=== PATIENT | female | born 1975 | race Caucasian/White ===

== ENCOUNTER 2020-03-29 16:23 | Outpatient (REF) | payer OTHER, SELFPAY ==
--- NOTE | 2020-03-29 16:25 | MR_ITS ---
EXAMINATION: MR BREAST WITHOUT AND WITH CONTRAST, BILATERAL CLINICAL INFORMATION: 44-year-old for high-risk screening lifetime risk 26% family history. COMPARISON: MRI of 12/19/2018, 11/22/2017 and 02/15/2017. TECHNIQUE: Imaging was performed with a dedicated breast coil. Prior to the administration of contrast, bilateral axial T1 and bilateral axial T2 weighted sequences were obtained. After the uneventful administration of?7 mL of Gadavist, dynamic contrast-enhanced VIBRANT series through the breasts in the axial plane were performed. Subtracted images were performed and reviewed. A delayed sagittal sequence through both breasts was acquired. Additionally, CAD post-processing, including maximum intensity projections, 3-D reconstructions and kinetic analysis, were performed an independent workstation and reviewed by the interpreting radiologist is a portion of this exam. FINDINGS: The patient's fibroglandular tissue demonstrates moderate background enhancement. LEFT BREAST: There is a susceptibility artifact without significant enhancement in the 3 o'clock position. There are a few scattered foci of enhancement demonstrating subthreshold and progressive-type kinetics. There are no areas of mass or non-mass suspicious of malignancy. There are T2 bright foci which may represent small cysts. There are no other findings on T2-weighted imaging or kinetic curve analysis. RIGHT BREAST: There are similar to the contralateral breast diffuse scattered foci of enhancement demonstrating subthreshold and progressive-type kinetics. No areas of mass or non-mass enhancement are suspicious of malignancy. There are T2 bright foci similar to the contralateral breast which may represent cysts. No additional findings on kinetic curve analysis. There is no suspicious internal mammary chain or axillary adenopathy. Limited views of the chest and abdomen are unremarkable. MR/MR breast BI wo/w con IMPRESSION: No MR specific evidence of malignancy. ASSESSMENT: LEFT BREAST: BI-RADS 2 benign. RIGHT BREAST: BI-RADS 2 benign. RECOMMENDATIONS: Routine mammographic imaging as per most recent study and MRI as per high-risk protocol.
== END 2020-03-29 16:24 | disposition home or self-care (01) ==
LOC: HO.MRI 16:23
PROVIDERS: PCP Internal Medicine; Visit Provider Surgery
DX: Z91.89 Other specified personal risk factors, not elsewhere classified (principal); Z80.3 Family history of malignant neoplasm of breast
CPT/HCPCS: 77049; A9585

== ENCOUNTER → 2020-04-20 14:48 | Outpatient (BNVA) | payer OTHER, SELFPAY | PROVIDERS: PCP Internal Medicine; Visit Provider Surgery ==

== ENCOUNTER 2020-11-16 15:35 | Outpatient (REF) | payer OTHER, SELFPAY ==
--- NOTE | ~2020-11-16 | MM_ITS ---
EXAMINATION: MM SCREENING DIGITAL BREAST TOMOSYNTHESIS, BILATERAL CLINICAL INFORMATION: Screening. Asymptomatic. The lifetime risk of breast cancer based on the Tyrer-Cuzick Model is 16%. COMPARISON: Mammography: 11/10/2019, 10/24/2018, 10/18/2017; MR breasts 03/29/2020 TECHNIQUE: Digital breast tomosynthesis is performed in both the craniocaudal and mediolateral oblique views along with computer-aided detection (CAD). Synthesized 2D images are generated from the tomosynthesis. Additional exaggerated right CC view is provided. FINDINGS: There are scattered areas of fibroglandular density (ACR BI-RADS breast composition Category b). There are no significant masses, abnormal calcifications, or other abnormalities. Breast tissue composition borders on extremely dense. There is a biopsy clip marker again seen upper outer left breast. The axilla and skin contours are unremarkable. MM/MM tomosynthesis screening BI IMPRESSION: No mammographic evidence of malignancy. ASSESSMENT: BI-RADS 1: Negative RECOMMENDATION: Routine annual mammography screening. This patient's information was entered into a reminder system with a target due date for their next mammogram.
== END 2020-11-16 15:36 | disposition home or self-care (01) ==
LOC: HO.MAMMO 15:35
PROVIDERS: PCP Internal Medicine; Visit Provider Surgery
DX: Z12.31 Encounter for screening mammogram for malignant neoplasm of breast (principal)
CPT/HCPCS: 77063; 77067

== ENCOUNTER 2021-09-19 16:37 | Outpatient (REF) | payer OTHER, SELFPAY ==
--- NOTE | ~2021-09-19 | MR_ITS ---
EXAMINATION: MR BREAST WITHOUT AND WITH CONTRAST, BILATERAL CLINICAL INFORMATION: 45-year-old for high-risk screening, lifetime risk greater than 20%, family history. COMPARISON: MRI 03/29/2020, 12/19/2018, 11/22/2017. Correlation to mammogram of 11/16/2020. TECHNIQUE: Imaging was performed with a dedicated breast coil. Prior to the administration of contrast, bilateral axial T1- and bilateral axial T2-weighted sequences were obtained. After the uneventful administration of?7 mL of Gadavist, dynamic contrast-enhanced VIBRANT series through the breasts in the axial plane were performed. Subtracted images were performed and reviewed. A delayed sagittal sequence through both breasts was acquired. Additionally, CAD post-processing, including maximum intensity projections, 3-D reconstructions and kinetic analysis, were performed an independent workstation and reviewed by the interpreting radiologist is a portion of this exam. FINDINGS: The patient's fibroglandular tissue demonstrates moderate background enhancement. There is diffuse motion artifact which decreases the overall sensitivity of the examination. LEFT BREAST: There is a susceptibility artifact at 3 o'clock with no significant enhancement. There are a few scattered foci of enhancement demonstrating subthreshold kinetics. There are no new areas of mass or non-mass enhancement suspicious of malignancy. There are no secondary signs of malignancy such as nipple inversion or duct enhancement. There are scattered T2 bright foci consistent with cysts. There are no additional findings on kinetic curve analysis. RIGHT BREAST: No suspicious masslike or non-masslike enhancement. No abnormal skin thickening or nipple retraction. There are a few scattered foci of enhancement demonstrating subthreshold kinetics. No abnormal architectural distortion. There are scattered oval T2 bright masses consistent with cysts. Review of kinetic images reveals no additional findings. There is no suspicious internal mammary chain or axillary adenopathy. Limited views of the chest and abdomen are unremarkable. MR/MR breast BI wo/w con IMPRESSION: Motion decreases the overall sensitivity of this study. There are no new MR findings suspicious of malignancy in either breast. ASSESSMENT: LEFT BREAST: BI-RADS 2 benign. RIGHT BREAST: BI-RADS 2 benign. RECOMMENDATIONS: Routine mammographic imaging as per most recent study and MRI as per high-risk protocol.
== END 2021-09-19 16:38 | disposition home or self-care (01) ==
LOC: HO.MRI 16:37
PROVIDERS: Visit Provider Surgery
DX: Z91.89 Other specified personal risk factors, not elsewhere classified (principal); Z80.3 Family history of malignant neoplasm of breast
CPT/HCPCS: 77049; A9585

== ENCOUNTER 2021-11-24 13:04 | Outpatient (REF) | payer OTHER, SELFPAY ==
--- NOTE | ~2021-11-24 | MM_ITS ---
EXAMINATION: MM SCREENING DIGITAL BREAST TOMOSYNTHESIS, BILATERAL CLINICAL INFORMATION: Screening. Asymptomatic. The lifetime risk of breast cancer based on the Tyrer-Cuzick Model is 15%. COMPARISON: Mammography: 11/16/2020, 11/10/2019, 10/24/2018; bilateral breast MRI 09/19/2021 TECHNIQUE: Digital breast tomosynthesis is performed in both the craniocaudal and mediolateral oblique views along with computer-aided detection (CAD). Synthesized 2D images are generated from the tomosynthesis. FINDINGS: The breasts are heterogeneously dense, which may obscure small masses (ACR BI-RADS breast composition Category c). There are no significant masses, abnormal calcifications, or other abnormalities. There is a biopsy clip marker again noted posterior upper outer left breast. The axilla and skin contours are unremarkable. There are no significant changes from prior studies. MM/MM tomosynthesis screening BI IMPRESSION: No mammographic evidence of malignancy. ASSESSMENT: BI-RADS 1: Negative RECOMMENDATION: Routine annual mammography screening. This patient's information was entered into a reminder system with a target due date for their next mammogram.
== END 2021-11-24 13:05 | disposition home or self-care (01) ==
LOC: HO.MAMMO 13:04
PROVIDERS: PCP Internal Medicine; Visit Provider Internal Medicine
DX: Z12.31 Encounter for screening mammogram for malignant neoplasm of breast (principal)
CPT/HCPCS: 77063; 77067

== ENCOUNTER → 2022-03-16 09:56 | Outpatient (BNVA) | payer OTHER, SELFPAY | PROVIDERS: PCP Internal Medicine; Visit Provider Surgery | DX: Z80.3 Family history of malignant neoplasm of breast (principal); Z91.89 Other specified personal risk factors, not elsewhere classified ==

== ENCOUNTER 2022-11-16 11:00 | Outpatient (REF) | payer OTHER, SELFPAY ==
--- NOTE | ~2022-11-16 | MR_ITS ---
EXAMINATION: MR BREAST WITHOUT AND WITH CONTRAST, BILATERAL CLINICAL INFORMATION: High-risk screening, family history of breast cancer. Calculated lifetime risk of breast cancer greater than 20%. COMPARISON: Bilateral breast MRI 12/19/2018, 03/29/2020, 09/19/2021, bilateral mammogram 11/24/2021 TECHNIQUE: Imaging was performed with a dedicated breast coil. Prior to the administration of contrast, bilateral axial T1 and bilateral axial T2 weighted sequences were obtained. After the uneventful administration of?7 mL of Gadavist, dynamic contrast-enhanced VIBRANT series through the breasts in the axial plane were performed. Subtracted images were performed and reviewed. A delayed sagittal sequence through both breasts was acquired. Additionally, CAD post-processing, including maximum intensity projections, 3-D reconstructions and kinetic analysis, were performed an independent workstation and reviewed by the interpreting radiologist is a portion of this exam. FINDINGS: The patient's extremely dense fibroglandular tissue demonstrates minimal background enhancement. LEFT BREAST: There are a few, stable appearing, scattered enhancing foci present. No suspicious masslike or non-masslike enhancement. No abnormal skin thickening or nipple retraction. No abnormal architectural distortion. Review of the T2 weighted images demonstrate numerous, scattered, small nonenhancing cysts, there are no dilated ducts. Review of kinetic images reveals no additional findings. RIGHT BREAST: There are a few, stable appearing, scattered enhancing foci present, as compared to prior of 2020, the number of scattered enhancing foci has decreased. No suspicious masslike or non-masslike enhancement. No abnormal skin thickening or nipple retraction. No abnormal architectural distortion. Review of the T2 weighted images demonstrate numerous, scattered, small nonenhancing cysts, there are no dilated ducts. Review of kinetic images reveals no additional findings. There is no suspicious internal mammary chain or axillary adenopathy. Limited views of the chest and abdomen are unremarkable. MR/MR breast BI wo/w con IMPRESSION: No MR specific evidence of malignancy. ASSESSMENT: LEFT BREAST: BI-RADS 2, benign findings. RIGHT BREAST: BI-RADS 2, benign findings. RECOMMENDATIONS: The patient is currently due for bilateral yearly screening mammogram. Repeat MRI as clinically indicated.
[2022-11-16] MEDS: gadobutroL 7.5 ML VIAL IVPUSH (12:18)
== END 2022-11-16 11:01 | disposition home or self-care (01) ==
LOC: HO.MRI 11:00
PROVIDERS: PCP Internal Medicine; Visit Provider Surgery
DX: Z12.39 Encounter for other screening for malignant neoplasm of breast (principal); Z91.89 Other specified personal risk factors, not elsewhere classified; Z80.3 Family history of malignant neoplasm of breast
CPT/HCPCS: 77049; A9585

== ENCOUNTER 2022-11-23 10:31 | Outpatient (AMB) | payer OTHER, SELFPAY ==
--- NOTE | 2022-11-23 10:41 | A.OFFVIS_ITS ---
Intake Vital Signs 11/23/22 10:49 Height 5 ft 4 in Weight 167 lb 6 oz BMI 28.7 BP 134/63 Blood Pressure Location Lt brachial Position Sitting Pulse 66 Intake Visit Reasons: Breast exam, 6 month follow up Intake Note: Patient is seen in office for 6 month follow up visit, breast exam. 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 Cortez and Dr. Escobedo with a strong family history of breast cancer including a maternal grandmother diagnosed at the age of 50 and a sister with ductal carcinoma in situ diagnosed at the age of 37. She was determined to have a lifetime risk of breast cancer at 31% therefore was placed on a high risk protocol, which included yearly mammogram, alternating every 6 months with yearly MRIs. She also underwent twice yearly clinical breast examination. An MRI was performed on 01/30/2017 revealed a suspicious enhancing mass in the left breast 3 o'clock position. Subsequent MR guided biopsy on 02/15/2018 revealed benign breast tissue with focal florid ductal hyperplasia, stromal fibrosis, columnar cell change, and apocrine metaplasia and microcysts. A six-month follow-up MRI was recommended, performed on 12/19/2018 which revealed a benign enhancing focus of the 6 o'clock position of the right breast. 1 year follow-up was recommended. Her latest mammogram dated 11/24/2021 revealed no mammographic evidence of malignancy (BI-RADS 1). Bilateral breast MRI of 11/16/2022 revealed no MR specific evidence of malignancy (BI-RADS 2 bilaterally). She continues to note lumpiness in the left breast which is tender to palpation. 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 [facility] Surgical History History of left breast biopsy Family History Father History of myocardial infarction Maternal Grandmother History of breast cancer Social History Alcohol intake: current Alcohol intake frequency: holidays/special occasions only Female Reproductive History Menstrual Date of Mammogram: 11/24/21 Review of Systems Const All systems reviewed & are unremarkable except as noted in HPI and below Denies nipple discharge Skin/Breast Denies breast skin changes, Reports breast pain, Denies breast mass, Denies change in breast shape, Denies new lesions and Denies nipple discharge Physical Exam Vital Signs: Last Vital Signs Pulse 66 11/23/22 10:49 BP 134/63 11/23/22 10:49 BMI result Body Mass Index 28.7 Const General: no acute distress and well developed Nutritional Appearance: well nourished Orientation/consciousness: patient oriented x3 Limitations: no limitations HEENT Head: Yes normocephalic and Yes atraumatic Ears: hearing grossly normal bilaterally Neck Neck: Yes trachea midline, Yes supple and Yes no JVD Chest Other: Right breast: No skin change, no nipple discharge, no nipple retraction, and no enlarged lymph node. Left breast: No palpable mass, skin change, nipple discharge, nipple retraction, or enlarged lymph node. Mild tenderness throughout the breast with no discrete mass; mild fibrocystic change. Resp Effort & Inspection: normal respiratory effort, no audible wheezes, no cough and no respiratory distress Skin General skin exam: no rashes or lesions noted Neuro General: patient oriented x3 Extrem General: Yes no clubbing, cyanosis or edema Assessment & Plan Assessment & Plan (1) Family history of breast cancer in first degree relative: Code(s): Z80.3 - Family history of malignant neoplasm of breast (2) At high risk for breast cancer: Code(s): Z91.89 - Other specified personal risk factors, not elsewhere classified Plan 47-year-old female patient determined to be high risk for breast cancer due to family history returning today for follow-up breast examination as part of the high risk screening protocol. Examination today reveals no suspicious findings in either breast. Her most recent mammogram and MRI revealed no suspicious findings. She will be due for a follow-up mammogram in 01/18/2023. She will follow up in 6 months for clinical breast examination. She is welcome to call sooner for any new concerns. Coding Level of Care Code Est Pt Level 3 (32200) Diagnoses Family history of breast cancer in first degree relative Z80.3 At high risk for breast cancer Z91.89
[2022-11-23 10:49] VITALS: BP 134/63; PULSE 66; BMI 28.7
== END 2022-11-23 10:58 | disposition home or self-care (01) ==
PROVIDERS: PCP Internal Medicine; Visit Provider Surgery
DX: Z80.3 Family history of malignant neoplasm of breast (principal); Z91.89 Other specified personal risk factors, not elsewhere classified
CPT/HCPCS: 99213

== ENCOUNTER → 2022-11-23 10:31 | Outpatient (BNVA) | payer OTHER, SELFPAY | PROVIDERS: PCP Internal Medicine; Visit Provider Surgery ==

== ENCOUNTER 2023-01-18 10:59 | Outpatient (REF) | payer OTHER, SELFPAY ==
--- NOTE | ~2023-01-18 | MM_ITS ---
EXAMINATION: MM SCREENING DIGITAL BREAST TOMOSYNTHESIS, BILATERAL CLINICAL INFORMATION: Screening. Asymptomatic. COMPARISON: Mammography: This study is compared with prior exams dating back to 2019. TECHNIQUE: Digital breast tomosynthesis is performed in both the craniocaudal and mediolateral oblique views along with computer-aided detection (CAD). Synthesized 2D images are generated from the tomosynthesis. FINDINGS: The breasts are extremely dense, which lowers the sensitivity of mammography (ACR BI-RADS breast composition Category d). There are no significant masses, abnormal calcifications, or other abnormalities. There is tissue marker present in the upper outer quadrant of the left breast from prior benign percutaneous biopsy. MM/MM tomosynthesis screening BI IMPRESSION: No mammographic evidence of malignancy. ASSESSMENT: BI-RADS BI-RADS 2 - Benign Findings RECOMMENDATION: Routine annual mammography screening. 1 year F/U This examination should not preclude the clinical evaluation of a suspicious palpable abnormality. This patient's information was entered into a reminder system with a target due date for their next mammogram.
== END 2023-01-18 11:00 | disposition home or self-care (01) ==
LOC: HO.MAMMO 10:59
PROVIDERS: PCP Internal Medicine; Visit Provider Surgery
DX: Z12.31 Encounter for screening mammogram for malignant neoplasm of breast (principal)
CPT/HCPCS: 77063; 77067

== ENCOUNTER → 2023-01-18 11:30 | Outpatient (BNV) | payer OTHER, SELFPAY | PROVIDERS: PCP Internal Medicine; Visit Provider Radiology Diagnostic Radiology | DX: Z12.31 Encounter for screening mammogram for malignant neoplasm of breast (principal) | CPT/HCPCS: 77063; 77067 ==

== ENCOUNTER 2023-08-16 10:58 | Outpatient (AMB) | payer OTHER, SELFPAY ==
--- NOTE | 2023-08-16 11:01 | A.OFFVIS_ITS ---
Vital Signs 08/16/23 11:06 Height 5 ft 4 in Weight 171 lb BMI 29.3 BP 131/78 Blood Pressure Location Lt brachial Position Sitting Pulse 84 Intake Visit Reasons: six month breast exam Intake Note: Patient is seen in office for 6 month follow up visit, breast exam. 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 Cortez and Dr. Escobedo with a strong family history of breast cancer including a maternal grandmother diagnosed at the age of 50 and a sister with ductal carcinoma in situ diagnosed at the age of 37. She was determined to have a lifetime risk of breast cancer at 31% therefore was placed on a high risk protocol, which included yearly mammogram, alternating every 6 months with yearly MRIs. She also underwent twice yearly clinical breast examination. An M RI was performed on 01/30/2017 revealed a suspicious enhancing mass in the left breast 3 o'clock position. Subsequent MR guided biopsy on 02/15/2018 revealed benign breast tissue with focal florid ductal hyperplasia, stromal fibrosis, columnar cell change, and apocrine metaplasia and microcysts. A six-month follow-up MRI was recommended, performed on 12/19/2018 which revealed a benign enhancing focus of the 6 o'clock position of the right breast. Her latest mammogram dated 01/18/2023 revealed no mammographic evidence of malignancy (BI- RADS 2). Breast MRI performed on 11/16/2022 revealed no MRI specific evidence of malignancy in either breast (BI-RADS 2). She continues to note lumpiness in the left breast which is tender to palpation. 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 [facility] Surgical History History of left breast biopsy Family History Father History of myocardial infarction Maternal Grandmother History of breast cancer Social History Alcohol intake: current Alcohol intake frequency: holidays/special occasions only Review of Systems Const All systems reviewed & are unremarkable except as noted in HPI and below Denies nipple discharge Skin/Breast Denies breast skin changes, Reports breast pain, Denies breast mass, Denies change in breast shape, Denies new lesions and Denies nipple discharge Physical Exam Const General: no acute distress and well developed Nutritional Appearance: well nourished Orientation/consciousness: patient oriented x3 Limitations: no limitations HEENT Head: Yes normocephalic and Yes atraumatic Ears: hearing grossly normal bilaterally Neck Neck: Yes trachea midline, Yes supple and Yes no JVD Chest Other: Right breast: No skin change, no nipple discharge, no nipple retraction, and no enlarged lymph node. Left breast: No palpable mass, skin change, nipple discharge, nipple retraction, or enlarged lymph node. Mild tenderness throughout the breast with no discrete mass; mild fibrocystic change. Resp Effort & Inspection: normal respiratory effort, no audible wheezes, no cough and no respiratory distress Skin General skin exam: no rashes or lesions noted Neuro General: patient oriented x3 Extrem General: Yes no clubbing, cyanosis or edema Assessment & Plan Assessment & Plan (1) Family history of breast cancer in first degree relative: Code(s): Z80.3 - Family history of malignant neoplasm of breast Category: Medical (2) At high risk for breast cancer: Code(s): Z91.89 - Other specified personal risk factors, not elsewhere classified Category: Medical Plan 47-year-old female patient determined to be high risk for breast cancer due to family history returning today for follow-up breast examination as part of the high risk screening protocol. Examination today reveals no suspicious findings in either breast. Her most recent mammogram and MRI revealed no suspicious findings. She will be due for a follow-up mammogram in 01/22/2024 and breast MRI in 11/22/2023. She will follow up in 6 months for clinical breast examination. She is welcome to call sooner for any new concerns. Coding Level of Care Code Est Pt Level 3 (27272) Diagnoses Family history of breast cancer in first degree relative Z80.3 At high risk for breast cancer Z91.89
[2023-08-16 11:06] VITALS: BP 131/78; PULSE 84; BMI 29.3
== END 2023-08-16 11:16 | disposition home or self-care (01) ==
PROVIDERS: PCP Internal Medicine; Visit Provider Surgery
DX: Z80.3 Family history of malignant neoplasm of breast (principal); Z91.89 Other specified personal risk factors, not elsewhere classified
CPT/HCPCS: 99213

== ENCOUNTER → 2023-08-16 10:58 | Outpatient (BNVA) | payer OTHER, SELFPAY | PROVIDERS: PCP Internal Medicine; Visit Provider Surgery ==

== ENCOUNTER 2023-12-27 10:53 | Outpatient (REF) | payer OTHER, SELFPAY ==
--- NOTE | ~2023-12-27 | MR_ITS ---
EXAMINATION: MR BREAST WITHOUT AND WITH CONTRAST, BILATERAL CLINICAL INFORMATION: High risk surveillance strong family history of breast cancer. COMPARISON: Mammography January 18, 2023, breast MRI September 19, 2021, March 29, 2020. TECHNIQUE: MR imaging of the breast was performed using T1, T2 and fat saturation techniques. Dynamic multiphase imaging was also performed after administration of intravenous gadolinium contrast agent. Computer generated 3-D reconstruction was utilized by the radiologist in the interpretation of this examination. FINDINGS: There is extremely dense fibroglandular breast tissue with moderate background enhancement with scattered enhancing foci not significantly changed from prior breast MRIs 201904/23/2020. LEFT BREAST: No suspicious enhancing mass or non-mass enhancement. No axillary or internal mammary lymphadenopathy. RIGHT BREAST: No suspicious enhancing mass or non-mass enhancement. No axillary or internal mammary lymphadenopathy. Limited views of the chest and abdomen are unremarkable. MR/MR breast BI wo/w con IMPRESSION: No MR specific evidence of malignancy. ASSESSMENT: LEFT BREAST: BI-RADS 1-Negative RIGHT BREAST: BI-RADS 1-Negative RECOMMENDATIONS: Recommend yearly MRI screening surveillance. Electronically signed by: Rhea Mills DO 01/09/2024 11:11 AM EST
[2023-12-27] MEDS: gadobutroL 7.5 ML VIAL IVPUSH (12:11)
== END 2023-12-27 10:54 | disposition home or self-care (01) ==
LOC: HO.MRI 10:53
PROVIDERS: PCP Internal Medicine; Visit Provider Surgery
DX: Z91.89 Other specified personal risk factors, not elsewhere classified (principal); Z80.3 Family history of malignant neoplasm of breast
CPT/HCPCS: 77049; A9585

== ENCOUNTER → 2023-12-27 11:10 | Outpatient (BNV) | payer OTHER, SELFPAY | PROVIDERS: PCP Internal Medicine; Visit Provider Internal Medicine | DX: Z80.3 Family history of malignant neoplasm of breast (principal); Z91.89 Other specified personal risk factors, not elsewhere classified | CPT/HCPCS: 77049 ==

== ENCOUNTER 2024-02-14 10:39 | Outpatient (AMB) | payer OTHER, SELFPAY ==
--- NOTE | 2024-02-14 10:41 | MHC.OFFVIS ---
Vital Signs 02/14/24 10:46 Height 5 ft 4 in Weight 171 lb BMI 29.3 BP 142/83 H Blood Pressure Location Lt brachial Position Sitting Pulse 88 Intake Visit Reasons: six month breast exam Intake Note: Patient is seen in office for 6 months follow up visit, breast exam. 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 Cortez and Dr. Escobedo with a strong family history of breast cancer including a maternal grandmother diagnosed at the age of 50 and a sister with ductal carcinoma in situ diagnosed at the age of 37. She was determined to have a lifetime risk of breast cancer at 31% therefore was placed on a high risk protocol, which included yearly mammogram, alternating every 6 months with yearly MRIs. She also underwent twice yearly clinical breast examination. An MRI was performed on 01/30/2017 revealed a suspicious enhancing mass in the left breast 3 o'clock position. Subsequent MR guided biopsy on 02/15/2018 revealed benign breast tissue with focal florid ductal hyperplasia, stromal fibrosis, columnar cell change, and apocrine metaplasia and microcysts. A six-month follow-up MRI was recommended, performed on 12/19/2018 which revealed a benign enhancing focus of the 6 o'clock position of the right breast. Her last mammogram dated 01/18/2023 revealed no mammographic evidence of malignancy (BI-RADS 2). She was scheduled for mammogram later today at the [facility]. Breast MRI performed on 12/27/2023 revealed no MRI specific evidence of malignancy in either breast (BI-RADS 1). She continues to note lumpiness in the left breast which is tender to palpation. She reports caring for many animals including goats and horses. [facility] Surgical History History of left breast biopsy Family History Father History of myocardial infarction Maternal Grandmother History of breast cancer Social History Alcohol intake: current Alcohol intake frequency: holidays/special occasions only Review of Systems Const All systems reviewed & are unremarkable except as noted in HPI and below Physical Exam Vital Signs: Last Vital Signs Pulse 88 02/14/24 10:46 BP 142/83 H 02/14/24 10:46 BMI result Body Mass Index 29.3 Const General: no acute distress and well developed Nutritional Appearance: well nourished Orientation/consciousness: patient oriented x3 Limitations: no limitations HEENT Head: Yes normocephalic and Yes atraumatic Ears: hearing grossly normal bilaterally Neck Neck: Yes trachea midline, Yes supple and Yes no JVD Chest Other: Right breast: No skin change, no nipple discharge, no nipple retraction, and no enlarged lymph node. Left breast: No palpable mass, skin change, nipple discharge, nipple retraction, or enlarged lymph node. Mild tenderness throughout the breast with no discrete mass; mild fibrocystic change. Resp Effort & Inspection: normal respiratory effort, no audible wheezes, no cough and no respiratory distress Skin General skin exam: no rashes or lesions noted Neuro General: patient oriented x3 Extrem General: Yes no clubbing, cyanosis or edema Assessment & Plan Assessment & Plan (1) Family history of breast cancer in first degree relative: Code(s): Z80.3 - Family history of malignant neoplasm of breast Category: Medical (2) At high risk for breast cancer: Code(s): Z91.89 - Other specified personal risk factors, not elsewhere classified Category: Medical Plan 48-year-old female patient determined to be high risk for breast cancer due to family history returning today for follow-up breast examination as part of the high risk screening protocol. Examination today reveals no suspicious findings in either breast. Her most recent mammogram and MRI revealed no suspicious findings. She is scheduled for a follow-up mammogram later today and breast MRI in December 2024. She will follow up in 6 months for clinical breast examination. She is welcome to call sooner for any new concerns. Coding Level of Care Code Est Pt Level 3 (13416) Diagnoses Family history of breast cancer in first degree relative Z80.3 At high risk for breast cancer Z91.89
[2024-02-14 10:46] VITALS: BP 142/83; PULSE 88; BMI 29.3
== END 2024-02-14 10:57 | disposition home or self-care (01) ==
PROVIDERS: PCP Internal Medicine; Visit Provider Surgery
DX: Z80.3 Family history of malignant neoplasm of breast (principal); Z91.89 Other specified personal risk factors, not elsewhere classified
CPT/HCPCS: 99213

== ENCOUNTER 2024-02-14 11:01 | Outpatient (REF) | payer OTHER, SELFPAY | END 2024-02-14 11:02 | disposition home or self-care (01) | LOC: HO.MAMMO 11:01 | PROVIDERS: PCP Internal Medicine; Visit Provider Surgery | DX: Z12.31 Encounter for screening mammogram for malignant neoplasm of breast (principal) | CPT/HCPCS: 77063; 77067 ==

== ENCOUNTER → 2024-02-14 13:00 | Outpatient (BNV) | payer OTHER, SELFPAY | PROVIDERS: PCP Internal Medicine; Visit Provider Internal Medicine | DX: Z12.31 Encounter for screening mammogram for malignant neoplasm of breast (principal) | CPT/HCPCS: 77063; 77067 ==

== ENCOUNTER 2024-08-14 11:00 | Outpatient (AMB) | payer OTHER, SELFPAY ==
--- NOTE | 2024-08-14 11:03 | A.OFFVIS_ITS ---
Vital Signs 08/14/24 11:10 Height 5 ft 4 in Weight 172 lb BMI 29.5 BP 133/80 Blood Pressure Location Lt brachial Position Sitting Pulse 76 Intake Visit Reasons: six month breast exam Intake Note: Patient is seen in office for 6 months follow up visit, breast exam. 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 Cortez and Dr. Escobedo with a strong family history of breast cancer including a maternal grandmother diagnosed at the age of 50 and a sister with ductal carcinoma in situ diagnosed at the age of 37. She was determined to have a lifetime risk of breast cancer at 31% therefore was placed on a high risk protocol, which included yearly mammogram, alternating every 6 months with yearly MRIs. She also underwent twice yearly clinical breast examination. An MRI was performed on 01/30/2017 revealed a suspicious enhancing mass in the left breast 3 o'clock position. Subsequent MR guided biopsy on 02/15/2018 revealed benign breast tissue with focal florid ductal hyperplasia, stromal fibrosis, columnar cell change, and apocrine metaplasia and microcysts. Her most recent breast MRI performed on 12/27/2023 revealed no MR evidence of malignancy (BI- RADS 1 bilaterally). Mammogram performed on 02/14/2024 also revealed no mammographic evidence of malignancy (BI-RADS 2). [facility] Surgical History History of left breast biopsy Family History Father History of myocardial infarction Maternal Grandmother History of breast cancer Social History Alcohol intake: current Alcohol intake frequency: holidays/special occasions only Review of Systems Const All systems reviewed & are unremarkable except as noted in HPI and below Physical Exam Vital Signs: Last Vital Signs Pulse 76 08/14/24 11:10 BP 133/80 08/14/24 11:10 BMI result Body Mass Index 29.5 Const General: no acute distress and well developed Nutritional Appearance: well nourished Orientation/consciousness: patient oriented x3 Limitations: no limitations HEENT Head: Yes normocephalic and Yes atraumatic Ears: hearing grossly normal bilaterally Neck Neck: Yes trachea midline, Yes supple and Yes no JVD Chest Other: Right breast: No skin change, no nipple discharge, no nipple retraction, and no enlarged lymph node. Left breast: No palpable mass, skin change, nipple discharge, nipple retraction, or enlarged lymph node. Resp Effort & Inspection: normal respiratory effort, no audible wheezes, no cough and no respiratory distress Skin General skin exam: no rashes or lesions noted Neuro General: patient oriented x3 Extrem General: Yes no clubbing, cyanosis or edema Assessment & Plan Assessment & Plan (1) Family history of breast cancer in first degree relative: Code(s): Z80.3 - Family history of malignant neoplasm of breast Category: Medical (2) At high risk for breast cancer: Code(s): Z91.89 - Other specified personal risk factors, not elsewhere classified Category: Medical Plan 48-year-old female patient determined to be high risk for breast cancer due to family history returning today for follow-up breast examination as part of the high risk screening protocol. Examination today reveals no suspicious findings in either breast. Her most recent mammogram and MRI revealed no suspicious findings. She will be scheduled for a breast MRI in December 2024 as well as mammogram on 03/05/2025. Orders: Orders MR breast BI wo/w con 12/28/24 Z80.3 - Family history of malignant neoplasm of breast, Z91.89 - Other specified personal risk factors, not elsewhere classified Coding Level of Care Code Est Pt Level 3 (23803) Complex EM visit Add On G2211 Diagnoses Family history of breast cancer in first degree relative Z80.3 At high risk for breast cancer Z91.89
[2024-08-14 11:10] VITALS: BP 133/80; PULSE 76; BMI 29.5
--- OUTSIDE RECORDS SUMMARY | 2024-08-14 12:05 | XMS_ITS | Clinical Summary ---
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 Name Role Phone Unavailable Primary Care Provider Unavailabl e Social History Tobacco Use Types Packs/Day Years Used Date Smoking Tobacco: Never Assessed Comments Unknown Sex and Gender Information Value Date Recorded Sex Assigned at Not on file Legal Sex Female 8:38 PM EDT Gender Identity Not on file Sexual Orientation Not on file Plan of Treatment Health Maintenance Due Date Last Done Comments CT Colonography 1977 Colonoscopy 1977 Colorectal Cancer Screening 1977 Depression Screening 1977 FIT DNA/Cologuard 1977 FIT 1977 FOBT 1977 HIV Screening 1977 SDOH Screening 1977 Sigmoidoscopy 1977 Disability Screening 1977 Alcohol/Substance Use Screening 1989 Tobacco Screening 1989 Family Planning (PISQ) 1992 Hepatitis C Screening 10/31/1995 Hepatitis B Vaccines (1 of 3 - 19+ 3-dose series) 1996 Pap Smear 1998 Cervical Cancer Screening 10/31/2007 HPV/Cotest 10/31/2007 Mammogram 2017 DTaP/Tdap/Td Vaccines (2 - T d or Tdap) 06/12/2021 06/13/2011 COVID-19 Vaccine ( - 2023-2 5 season) 2023 Influenza Vaccine (Season Ended) 2024 Zoster Vaccines (1 of 2) 10/31/2027 RSV Patients and Pa tients Aged 60 years or older (1 - 1-dose 75+ series) 2052 HIB Vaccines Aged Out No longer eligi ble based on patient's age to complete this topic HPV Vaccines Aged Out No longer eligi ble based on patient's age to complete this topic Hepatitis A Vaccines Aged Out No long er eligible based on patient's age to complete this topic IPV Vaccines Aged Out No longer eligi ble based on patient's age to complete this topic Meningococcal B Vaccine Aged Out No l onger eligible based on patient's age to complete this topic Meningococcal Vaccine Aged Out No jimmie yared eligible based on patient's age to complete this topic Pneumococcal Vaccine: Pediat rics (0 to 5 Years) and At-Risk Patients (6 to 49) Years) Aged Out No longer elig ible based on patient's age to complete this topic RSV under 20 months Aged Out No longe r eligible based on patient's age to complete this topic Rotavirus Vaccines Aged Out No longer eligible based on patient's age to complete this topic [id number]
== END 2024-08-14 11:20 | disposition home or self-care (01) ==
LOC: HO.HGS 11:01
PROVIDERS: PCP Internal Medicine; Visit Provider Surgery
DX: Z80.3 Family history of malignant neoplasm of breast (principal); Z91.89 Other specified personal risk factors, not elsewhere classified
CPT/HCPCS: 99213

== ENCOUNTER → 2024-08-14 11:00 | Outpatient (BNVA) | payer OTHER, SELFPAY | PROVIDERS: PCP Internal Medicine; Visit Provider Surgery ==

== ENCOUNTER → 2024-12-07 08:21 | Outpatient (BNV) | payer OTHER, SELFPAY | PROVIDERS: PCP Internal Medicine; Visit Provider Internal Medicine | DX: Z91.89 Other specified personal risk factors, not elsewhere classified (principal); Z80.3 Family history of malignant neoplasm of breast | CPT/HCPCS: 77049 ==

== ENCOUNTER 2024-12-07 08:34 | Outpatient (REF) | payer OTHER, SELFPAY ==
--- NOTE | ~2024-12-07 | MR_ITS ---
EXAMINATION: MR BREAST WITHOUT AND WITH CONTRAST, BILATERAL CLINICAL INFORMATION: High risk screening surveillance. Strong family history of breast cancer including sister and grandmother. COMPARISON: Comparison is made with relevant prior imaging on PACS. Including breast MRI November 16, 2022 December 27, 2023. TECHNIQUE: MR imaging of the breast was performed using T1, T2 and fat saturated techniques. Dynamic multiphase imaging was also performed after the administration of intravenous gadolinium contrast agent. Computer generated 3D reconstruction and enhancement kinetic analysis was ulitized by the radiologist in the interpretation of this examination. FINDINGS: Breast composition: Extreme fibroglandular breast tissue Background parenchymal enhancement: Marked with bilateral scattered enhancing foci LEFT BREAST: No suspicious enhancing masses or areas of non mass enhancement. No axillary or internal mammary adenopathy. RIGHT BREAST: No suspicious enhancing masses or areas of non mass enhancement. No axillary or internal mammary adenopathy. Limited views of the chest and abdomen are unremarkable. MR/MR breast BI wo/w con IMPRESSION: No MR specific evidence of malignancy. ASSESSMENT: LEFT BREAST: BI-RADS 1-Negative RIGHT BREAST: BI-RADS 1-Negative RECOMMENDATIONS: Yearly screening mammography Yearly Breast MRI screening surveillance. Electronically signed by: Rhea Mills DO 12/07/2024 05:42 PM EDT
--- OUTSIDE RECORDS SUMMARY | 2024-12-07 09:12 | XMS_ITS | Clinical Summary ---
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
--- OUTSIDE RECORDS SUMMARY | 2024-12-07 09:12 | XMS_ITS | Clinical Summary ---
Author Organization [facility] Address [address] [place] [address] Care Team Providers Care Supervisor Wet End Name Role Phone Ledy Romeo MD Primary Care Provider [phone] Allergies Active Allergy Reactions Criticality Noted Date Comments Hydrocodone-Acetamino phen Nausea And Vomiting 09/13/2005 Other Runny nose 02/10/2010 Seasonal allergies Medications rimegepant (Nurtec) 75 mg dispersible tablet Take by mouth. Active albuterol HFA (PROAIR HFA ; PROVENTIL HFA ; VENTOLIN HFA) 90 mcg/actuation inhaler Inhale 2 Puffs into the lungs every 4 hours as needed for Cough or Wheezing. 07/27/2020 Active omeprazole (PriLOSEC) [address] capsule Take 1 capsule by mouth daily. 07/27/2020 Active Active Problems Problem Noted Date Diagnosed Date Breast mass 03/16/2016 Interstitial cystitis 04/13/2015 Overview (03/10/2024): Urology consultation 05/2014 Allergic rhinitis 10/07/2006 Onychomycosis 03/07/2006 Migraine 03/07/2006 Overview (03/10/2024): IMO update Asthma 03/07/2006 Overview (03/10/2024): childhood, not using inhalers Immunizations Immunization Administration Dates Next Due PPD Test 09/13/2005 Tdap Tetanus diptheria acell ular pertussis (Boostrix; Adacel) 7yo and older 06/13/2011 Surgical History Surgery Date Site/Laterality Comments WISDOM TOOTH EXTRACTION age 23 PROCEDURE: HISTORICAL WISDOM TEETH EXTRACTION Medical History Medical History Date Comments Unspecified asthma(493.90) DX:Un specified asthma(493.90) Dermatophytosis of nail 03/07/2006 DX:[place] tophytosis of nail Migraine, unspecified, witho ut mention of intractable migraine without mention of status migrainosus 03/07/2006 DX:Migraine, unspecified, wi thout mention of intractable migraine without mention of status migrainosus Allergic rhinitis, cause unspecified 10/07/2006 DX:Allergic rhinitis, cause unspecified Fibrocystic breast 2009 DX:Fibrocysti c breast Family History Medical History Relation Name Comments Diabetes Brother 1 x 1 Heart attack Father Colon cancer Maternal Grandfather skin ca ncer Breast cancer Maternal Grandmother Hypertension Mother migraines Diabetes Other 2 nieces Heart attack Paternal Grandfather Diabetes Sister x 4 non0-cancerous breast lump Heart attack Uncle paternal Relation Name Status Comments Brother 1 x 1 Brother 2 x 3 Alive Father Maternal Grandfather Maternal Grandmother Mother Alive Other Paternal Grandfather Paternal Grandmother Sister x 4 Alive Uncle paternal Social History Tobacco Use Types Packs/Day Years Used Date Smoking Tobacco: Never Smokeless Tobacco: Never Alcohol Use Standard Drinks/Week Comments Yes 0 (1 standard drink = 0.6 oz pur e alcohol) Comments Unknown Sex and Gender Information Value Date Recorded Sex Assigned at Not on file Legal Sex Female 10:20 AM EST Gender Identity Not on file Sexual Orientation Not on file Obstetrics History Last Filed Vital Signs Vital Sign Reading Time Taken Comments Blood Pressure 138/84 01/02/2022 10:51 AM EDT Pulse 75 01/02/2022 10:51 AM EDT Temperature - - Respiratory Rate - - Oxygen Saturation - - Inhaled Oxygen Concentration - - Weight 73.9 kg (163 lb) 01/02/2022 10:51 AM EDT Height 162.6 cm (5' 4 ) 10/02/2021 2:50 PM EDT Body Mass Index 27.98 10/02/2021 2:50 PM EDT Plan of Treatment Upcoming Encounters Date Type Department Care Team (Late st Contact Info) Description 01/13/2025 3:00 PM EST Office Visit Adult Medicine [address] [id number] Ledy Romeo MD [address] [place] [address] Health Maintenance Due Date Last Done Comments Breast Cancer Screening 1977 Colorectal Cancer Screening: Colonoscopy 1977 Hepatitis B Vaccines (1 of 3 - 19+ 3-dose series) 1996 Pneumococcal Vaccine: Pediat rics (0 to 5 Years) and At-Risk Patients (6 to 49 Years) (1 of 2 - PCV) 1996 DTaP,Tdap,and Td Vaccines (2 - Td or Tdap) 06/12/2021 06/13/2011 HIV Screening 02/04/2022 Hepatitis C Screening 02/04/2022 Social Influencers of Health Screening 02/04/2022 Depression Screening 03/04/2024 COVID-19 Vaccine (1 - 2023-2 5 season) 2024 Influenza Vaccine (#1) 2024 Cervical Cancer Screening: HPV 08/18/2026 08/18/2021 Cholesterol Screening (Lipid Panel) 01/02/2027 01/02/2022 RSV Immunization Adult Patie nts (1 - 1-dose 75+ series) 2052 HIB [...] on patient's age to complete this topic MMR Vaccines Aged Out No longer eligi ble based on patient's age to complete this topic Meningococcal ACWY Vaccine Aged Out N o longer eligible based on patient's age to complete this topic Meningococcal B Vaccine Aged Out No l onger eligible based on patient's age to complete this topic RSV Immunization Patients Un asha 20 months Aged Out No longer eligible b ased on patient's age to complete this topic Varicella Vaccines Aged Out No longer eligible based on patient's age to complete this topic Procedures Procedure Name Priority Date/Time Associated Diagnosis Comments LIPID PANEL Routine 01/02/2022 HM HPV Routine 08/18/2021 from Last 3 Months or Most Recently Relevant to Health Maintenance Results * Lipid panel (01/02/2022) LDL/HDL Ratio 2 0 - 4 Triglycerides 45 0 - 150 mg/dL Cholesterol 177 0 - 200 mg/dL HDL 86 >=40 mg/dL LDL Cholesterol 82 0 - 100 mg/dL Blood Venous blood specimen / Unknown Historical Provider LAB BLOOD ORDERABLES Emperatriz l Result * Cervical Cancer Screening: HPV (08/18/2021) Cervical Cancer Screening: HPV abstracted, negative Historical Provider HEALTH MAINTENANCE Final Result from Last 3 Months or Most Recently Relevant to Health Maintenance Insurance [employer] Care Teams Supervisor Wet End Relationship Specialty Start Date End Date Ledy Romeo MD [address] [place] [address] PCP - General 02/09/04
--- OUTSIDE RECORDS SUMMARY | 2024-12-07 09:12 | XMS_ITS ---
Author Name [facility] Organization Unknown Care Team Organization Name Specialty Phone Email Start Date End Da te [facility] 01/09/202210/02
== END 2024-12-07 08:35 | disposition home or self-care (01) ==
LOC: HO.MRI 08:34
PROVIDERS: PCP Internal Medicine; Visit Provider Surgery
DX: Z12.39 Encounter for other screening for malignant neoplasm of breast (principal); Z91.89 Other specified personal risk factors, not elsewhere classified; Z80.3 Family history of malignant neoplasm of breast
CPT/HCPCS: 77049; A9585